=== PATIENT | female | born 1945 | race African-American/Black ===

== ENCOUNTER 2016-08-03 06:10 | Day surgery (SDC) | payer MEDICARE, BC ==
--- NOTE | ~2016-08-03 | EGD ---
EGD REPORT [facility] [address] [place] [address] NAME: EDGAR GUERRA : [birth year] STATUS : REG [facility]#: [id number] AGE: 70 ADM/REG DATE : 08/03/16 MR#: [id number] REPORT SERV DATE: 08/03/16 DICTATED BY: VANNESA GUTIERREZ DATE: 08/03/16 REPORT STATUS : Draft [facility]ANSCRIBED BY: [facility] DATE: 08/03/16 Endoscopy Center Patient Name: Edgar Guerra Date of : 1945 Attending MD: VANNESA GUTIERREZ MD Procedure Date No Time: 08/03/2016 Procedure: Upper GI endoscopy Indications: Unexplained chest pain, Nausea with vomiting Referring MD: KAYLEIGH FONSECA Medicines: as per anesthesia Complications: No immediate complications. Procedure: Pre-Anesthesia Assessment: - ASA Grade Assessment: III - A patient with severe systemic disease. After obtaining informed consent, the endoscope was passed under direct vision. Throughout the procedure, the patient's blood pressure, pulse, and oxygen saturations were monitored continuously. The GIF H190 [id number] was introduced through the mouth, and advanced to the third part of duodenum. The upper GI endoscopy was accomplished without difficulty. The patient tolerated the procedure. Findings: The examined esophagus was normal. A small hiatus hernia was present. Diffuse moderate inflammation characterized by erythema and friability was found in the gastric body. Diffuse moderate inflammation characterized by erythema and friability was found in the gastric antrum. Biopsies were taken with a cold forceps for histology. The examined duodenum was normal. Impression: - Normal esophagus. - Hiatus hernia. - Gastritis. - Gastritis. Biopsied. - Normal examined duodenum. Recommendation: - Await pathology results. - Follow an antireflux regimen. - Continue present medications. Procedure Code(s): --- Professional --- 38862, Esophagogastroduodenoscopy, flexible, transoral; EGD REPORT [facility] [address] [place]. [address] NAME: EDGAR GUERRA : [birth year] STATUS : REG [facility] PAT#: [id number] AGE: 70 ADM/REG DATE : 08/03/16 MR#: [id number] REPORT SERV DATE: 08/03/16 DICTATED BY: VANNESA GUTIERREZ. DATE: 08/03/16 REPORT STATUS : Draft TRANSCRIBED BY: [employer] DATE: 08/03/16 with biopsy, single or multiple Diagnosis Code(s): --- Professional --- K44.9, Diaphragmatic hernia without obstruction or gangrene K29.70, Gastritis, unspecified, without bleeding R07.9, Chest pain, unspecified R11.2, Nausea with vomiting, unspecified CPT copyright 2013 [employer] [employer]. All rights reserved. The codes documented in this report are preliminary and upon licsw review may be revised to meet current compliance requirements. VANNESA GUTIERREZ MD 08/03/2016 7:49 AM This report has been signed electronically. Number of Addenda: 0 Note Initiated On: 08/03/2016 7:35 AM Scope Withdrawal Time 0 hours 0 minutes 0 seconds [address] [place] [address]
--- NOTE | ~2016-08-03 | EGD ---
EGD REPORT [facility] [address] [place] [address] NAME: EDGAR GUERRA : [birth year] STATUS : REG [facility]#: [id number] AGE: 70 ADM/REG DATE : 08/03/16 MR#: [id number] REPORT SERV DATE: 08/03/16 DICTATED BY: VANNESA GUTIERREZ DATE: 08/03/16 REPORT STATUS : Draft [facility]ANSCRIBED [facility]: [facility] DATE: 08/03/16 Endoscopy Center Patient Name: Edgar Guerra Date of : 1945 Attending MD: VANNESA GUTIERREZ MD Procedure Date No Time: 08/03/2016 Procedure: Colonoscopy Indications: High risk colon cancer surveillance: Personal history of colonic polyps Referring MD: KAYLEIGH FONSECA Medicines: as per anesthesia Complications: No immediate complications. Procedure: Pre-Anesthesia Assessment: - ASA Grade Assessment: III - A patient with severe systemic disease. After I obtained informed consent, the scope was passed under direct vision. Throughout the procedure, the patient's blood pressure, pulse, and oxygen saturations were monitored continuously. The PCF [id number] was introduced through the anus and advanced to the cecum, identified by appendiceal orifice and ileocecal valve. The colonoscopy was performed without difficulty. The patient tolerated the procedure. The quality of the bowel preparation was adequate to identify polyps. Findings: The perianal and digital rectal examinations were normal. A sessile polyp was found in the descending colon. The polyp was 3 mm in size. The polyp was removed with a cold biopsy forceps. Resection and retrieval were complete. A sessile polyp was found in the rectum. The polyp was 3 mm in size. The polyp was removed with a cold biopsy forceps. Resection and retrieval were complete. Multiple small and large-mouthed diverticula were found in the sigmoid colon, in the descending colon, in the transverse colon and in the ascending colon. Internal hemorrhoids were found during endoscopy and were mild. Impression: - One 3 mm polyp in the descending colon. Resected and retrieved. - One 3 mm polyp in the rectum. Resected and retrieved. - Diverticulosis in the sigmoid colon, in the descending colon, in the transverse colon and in the ascending colon. - Internal hemorrhoids. EGD REPORT [address] [address] NAME: EDGAR GUERRA : [birth year] STATUS : REG [facility] PAT#: [id number] AGE: 70 ADM/REG DATE : 08/03/16 MR#: [id number] REPORT SERV DATE: 08/03/16 DICTATED BY: VANNESA GUTIERREZ DATE: 08/03/16 REPORT STATUS : Draft TRANSCRIBED BY: [employer] DATE: 08/03/16 Recommendation: - Await pathology results. - Repeat colonoscopy for surveillance based on pathology results. Procedure Code(s): --- Professional --- 48924, Colonoscopy, flexible, proximal to splenic flexure; with biopsy, single or multiple Diagnosis Code(s): --- Professional --- K62.1, Rectal polyp D12.4, Benign neoplasm of descending colon K64.8, Other hemorrhoids K57.30, Diverticulosis of large intestine without perforation or abscess without bleeding Z86.010, Personal history of colonic polyps CPT copyright 2013 [employer]. All rights reserved. The codes documented in this report are preliminary and upon pan washer hand review may be revised to meet current compliance requirements. VANNESA GUTIERREZ MD 08/03/2016 8:14 AM This report has been signed electronically. Number of Addenda: 0 Note Initiated On: 08/03/2016 7:34 AM Scope Withdrawal Time 0 hours 10 minutes 28 seconds [address] [place] [address]
[~2016-08-03 06:10] MED LIST: ASA5GR PO; ASAB PO; CALTRA600D PO; DYAZIDE1 CAP PO; FISH-EPA1000 MG PO; GARLIC PO; LIPITOR40 PO; MULTIPLE VIT PO; NORV5 PO; OS500+D PO; PRILO PO; SPIRO25 PO; VENTOLIN HFA INH; VIT D3 PO; VITAMIN D31000 UNIT PO; VITAMIN D400 UNI1 PO
== END 2016-08-03 23:59 | disposition home or self-care (01) ==
LOC: DMU 06:10
PROVIDERS: Internal Medicine Gastroenterology
PROC: 0DB68ZX Excision of Stomach, Via Natural or Artificial Opening Endoscopic, Diagnostic (ICD-10-PCS; 2016-08-03)
PROC: 0DBP8ZZ Excision of Rectum, Via Natural or Artificial Opening Endoscopic (ICD-10-PCS; principal; 2016-08-03 08:00)
PROC: 0DBM8ZZ Excision of Descending Colon, Via Natural or Artificial Opening Endoscopic (ICD-10-PCS; 2016-08-03 08:00)
DX: Z12.11 Encounter for screening for malignant neoplasm of colon (principal); D12.4 Benign neoplasm of descending colon; D12.8 Benign neoplasm of rectum; K29.50 Unspecified chronic gastritis without bleeding; K57.30 Diverticulosis of large intestine without perforation or abscess without bleeding; K64.8 Other hemorrhoids; I10 Essential (primary) hypertension; K44.9 Diaphragmatic hernia without obstruction or gangrene; J44.9 Chronic obstructive pulmonary disease, unspecified; F17.210 Nicotine dependence, cigarettes, uncomplicated; Z85.118 Personal history of other malignant neoplasm of bronchus and lung; Z86.010 Personal history of colon polyps; Z79.82 Long term (current) use of aspirin; Z79.899 Other long term (current) drug therapy; Z98.890 Other specified postprocedural states; Z90.2 Acquired absence of lung [part of]
CPT/HCPCS: 88305